=== PATIENT | female | born 1960 | race Hispanic/Latino ===

== ENCOUNTER 2020-01-03 12:05 | Emergency (ER) | payer BC, OTHER ==
[2020-01-03] MEDS ORDERED: ONDANSETRON HCL 4 MG/2 ML VIAL ONE (13:05)
[2020-01-03] MEDS ORDERED: MORPHINE SULFATE 4 MG/1ML SYG ONE (13:05)
[2020-01-03] MEDS ORDERED: KETOROLAC TROMETHAMINE 30MG/ML ONE (14:58)
[2020-01-03] MEDS ORDERED: DICYCLOMINE HCL 10 MG/ML 2ML AMP IM ONE (14:58)
== END 2020-01-03 15:42 | disposition home or self-care (01) ==
LOC: EDH 12:05
DX: K59.00 Constipation, unspecified (principal)
CPT/HCPCS: 36415; 74176; 80048; 80076; 81003; 82550; 83690; 84484; 85025; 85610; 85730; 93005; 96372; 96374; 96375; 99285; J0500; J1885; J2270; J2405

== ENCOUNTER → 2020-11-04 | Outpatient (CLI) | payer BC | END | disposition home or self-care (01) | LOC: OIH 14:03 | PROVIDERS: ATTEND Internal Medicine | DX: M25.511 Pain in right shoulder (principal); M24.9 Joint derangement, unspecified | CPT/HCPCS: 73030 ==